=== PATIENT | female | born 1975 | race Caucasian/White ===

== ENCOUNTER 2022-06-08 08:43 | Day surgery (SDC) | payer BC ==
[2022-06-07 09:12] LABS: BASOPHILS # (AUTO) 0.1 K/uL (0.00-0.22); BASOPHILS % (AUTO) 0.7 % (0.0-2.0); EOSINOPHILS # (AUTO) 0.1 K/uL (0-0.4); EOSINOPHILS % (AUTO) 1.3 % (0.0-4.0); HEMATOCRIT 36.3 % (36-48); HEMOGLOBIN 11.3 g/dL (12.0-16.0); LYMPHOCYTES # (AUTO) 0.9 K/uL (2.5-16.5); LYMPHOCYTES % (AUTO) 10.1 % (20.5-51.1); MEAN CORPUSCULAR HEMOGLOBIN 22 pg (27-31); MEAN CORPUSCULAR HGB CONC 31 g/dL (33-37); MEAN CORPUSCULAR VOLUME 71.3 fL (80-94); MONOCYTES # (AUTO) 0.4 K/uL (0.8-1.0); MONOCYTES % (AUTO) 5.1 % (1.7-9.3); NEUTROPHILS # (AUTO) 7.3 K/uL (1.8-7.7); NEUTROPHILS % (AUTO) 82.8 % (42.2-75.2); PLATELET COUNT (AUTO) 473 K/uL (140-450); RED BLOOD CELL COUNT(AUTO) 5.08 MIL/uL (4.20-5.40); RED CELL DISTRIBUTION WIDTH 16.4 % (11.6-13.7); WHITE BLOOD COUNT (AUTO) 8.8 K/uL (4.8-10.8)
[2022-06-07 09:27] LABS: ALBUMIN 3.6 g/dL (3.4-5.0); ANION GAP 12.7 (8-16); CARBON DIOXIDE 29.1 mmol/L (21-32); CREATININE 0.8 mg/dL (0.6-1.3); POTASSIUM 3.8 mmol/L (3.5-5.1); TOTAL BILIRUBIN 0.4 mg/dL (0.0-1.0)
[~2022-06-08] VITALS: Ht 165.1 cm; Wt 63.5 kg
[2022-06-08] MEDS ORDERED: BUPIVACAINE-MPF/EPI 0.5% 30 ML VIAL INJ ONE (10:10)
[2022-06-08] MEDS ORDERED: LIDOCAINE 1% 500 MG/50 ML VIAL ONE (10:11)
[2022-06-08] MEDS ORDERED: fentaNYL citrate 0.05 MG/ML VIAL ONE (11:10)
[2022-06-08] MEDS ORDERED: MIDAZOLAM 2 MG/2 ML VIAL ONE (11:10)
[2022-06-08] MEDS ORDERED: HYDROcodone/APAP 5/325 MG 1 TAB TAB PO PRN (12:55)
[2022-06-08] MEDS ORDERED: ONDANSETRON 4 MG/2 ML VIAL IV PRN (12:55)
[2022-06-08] MEDS ORDERED: HYDROmorphone 1 MG/ML AMP IVP PRN ×2 (12:55→13:35)
[2022-06-08] MEDS ORDERED: MORPHINE SULFATE 2 MG/ML SYR IVP PRN (12:55)
[2022-06-08] MEDS ORDERED: MORPHINE SULFATE 4 MG/ML SYR IV PRN (12:55)
[2022-06-08] MEDS ORDERED: ONDANSETRON 4 MG/2 ML VIAL ONE (13:27)
[2022-06-08] MEDS ORDERED: KETOROLAC 30 MG/ML VIAL ONE (13:27)
[2022-06-08] MEDS ORDERED: LIDOCAINE MPF 2% 100 MG/5 ML VIAL INJ ONE (13:27)
[2022-06-08] MEDS ORDERED: PROPOFOL 200 MG/20 ML VIAL IV ONE (13:27)
[2022-06-08] MEDS ORDERED: LACTATED RINGERS 1,000 ML IV SCH (13:35)
[2022-06-08] MEDS ORDERED: ONDANSETRON 4 MG/2 ML VIAL IVP PRN (13:35)
[2022-06-08] MEDS ORDERED: diphenhydrAMINE 50 MG/ML VIAL IVP PRN (13:35)
== END 2022-06-08 15:15 | disposition home or self-care (01) ==
LOC: MMU 08:43 → MDS 08:43
PROVIDERS: ATTEND Surgery
DX: N63.21 Unspecified lump in the left breast, upper outer quadrant (principal); C50.912 Malignant neoplasm of unspecified site of left female breast; Z79.01 Long term (current) use of anticoagulants
CPT/HCPCS: 19120; 36415; 71045; 80053; 81025; 85025; 87070; 87075; 87205; 87426; J0690; J1885; J2001; J2250; J2405; J2704; J3010; J3490; J7060; 88307

== ENCOUNTER 2022-07-18 07:59 | Day surgery (SDC) | payer MEDICAID ==
[2022-07-17 10:20] LABS: ALBUMIN 4.2 g/dL (3.4-5.0); ANION GAP 10.4 (8-16); CARBON DIOXIDE 27.5 mmol/L (21-32); CREATININE 0.9 mg/dL (0.6-1.3); POTASSIUM 3.9 mmol/L (3.5-5.1); TOTAL BILIRUBIN 0.6 mg/dL (0.0-1.0)
[2022-07-17 14:13] LABS: BASOPHILS % (AUTO) 0.8 % (0.0-2.0); EOSINOPHILS # (AUTO) 0.1 K/uL (0-0.4); EOSINOPHILS % (AUTO) 1.9 % (0.0-4.0); HEMATOCRIT 39.2 % (36-48); HEMOGLOBIN 12.6 g/dL (12.0-16.0); LYMPHOCYTES % (AUTO) 42.2 % (20.5-51.1); MEAN CORPUSCULAR HEMOGLOBIN 24 pg (27-31); MEAN CORPUSCULAR HGB CONC 32 g/dL (33-37); MEAN CORPUSCULAR VOLUME 73.9 fL (80-94); MONOCYTES # (AUTO) 0.2 K/uL (0.8-1.0); MONOCYTES % (AUTO) 5.2 % (1.7-9.3); NEUTROPHILS # (AUTO) 2.4 K/uL (1.8-7.7); NEUTROPHILS % (AUTO) 49.9 % (42.2-75.2); PLATELET COUNT (AUTO) 233 K/uL (140-450); RED BLOOD CELL COUNT(AUTO) 5.31 MIL/uL (4.20-5.40); RED CELL DISTRIBUTION WIDTH 19.3 % (11.6-13.7); WHITE BLOOD COUNT (AUTO) 4.7 K/uL (4.8-10.8)
[~2022-07-18] VITALS: Ht 165.1 cm; Wt 63.5 kg
[2022-07-18] MEDS ORDERED: BUPIVACAINE-MPF 0.25% 30 ML VIAL INJ ONE (09:44)
[2022-07-18] MEDS ORDERED: MEPERIDINE 25 MG/ML SYR ONE (10:00)
[2022-07-18] MEDS ORDERED: SEVOFLURANE 250 ML BTL INH ONE (10:00)
[2022-07-18] MEDS ORDERED: ceFAZolin 1,000 MG VIAL ONE (10:00)
[2022-07-18] MEDS ORDERED: fentaNYL citrate 0.05 MG/ML - 50mL vial IV ONE (10:00)
[2022-07-18] MEDS ORDERED: PROPOFOL 200 MG/20 ML VIAL IV ONE ×2 (10:00→10:09)
[2022-07-18] MEDS ORDERED: fentaNYL citrate 0.05 MG/ML VIAL ONE (10:08)
[2022-07-18] MEDS ORDERED: SUCCINYLCHOLINE CHLORIDE 200 MG/10 ML VIAL IVP ONE (10:09)
[2022-07-18] MEDS ORDERED: ONDANSETRON 4 MG/2 ML VIAL ONE (10:31)
[2022-07-18] MEDS ORDERED: MEPERIDINE 50 MG/ML SYR ONE ×2 (10:40→11:11)
[2022-07-18] MEDS ORDERED: MORPHINE SULFATE 2 MG/ML SYR IVP PRN (11:45)
[2022-07-18] MEDS ORDERED: MORPHINE SULFATE 4 MG/ML SYR IV PRN (11:45)
[2022-07-18] MEDS ORDERED: HYDROmorphone 1 MG/ML AMP IVP PRN (11:45)
[2022-07-18] MEDS: HYDROmorphone 1 MG/ML AMP IVP PRN ×4 (11:45→12:15)
[2022-07-18] MEDS ORDERED: ONDANSETRON 4 MG/2 ML VIAL IV PRN (11:45)
[2022-07-18] MEDS ORDERED: ONDANSETRON 4 MG/2 ML VIAL IVP PRN (11:50)
[2022-07-18] MEDS ORDERED: diphenhydrAMINE 50 MG/ML VIAL IVP PRN (11:50)
[2022-07-18] MEDS ORDERED: MEPERIDINE 25 MG/ML SYR IVP PRN (11:50)
[2022-07-18] MEDS ORDERED: LACTATED RINGERS 1,000 ML IV SCH (11:50)
[2022-07-18] MEDS ORDERED: HYDROmorphone PFS 2 MG/ML SYR ONE (11:51)
[2022-07-18] MEDS ORDERED: ONDANSETRON 4 MG/2 ML VIAL IVP ONE (14:00)
== END 2022-07-18 15:10 | disposition home or self-care (01) ==
LOC: MOR 07:59 → MMU 08:00 → MOR 15:10
PROVIDERS: ATTEND Surgery
DX: C50.412 Malignant neoplasm of upper-outer quadrant of left female breast (principal); Z20.822 Contact with and (suspected) exposure to COVID-19; Z79.899 Other long term (current) drug therapy
CPT/HCPCS: 19301; 36415; 80053; 81025; 85025; 87426; 88307; J0330; J0690; J1170; J2175; J2405; J2704; J3010; J3490; J7060; J7120

== ENCOUNTER 2022-08-16 07:56 | Inpatient (IN) | payer MEDICAID ==
[2022-08-15 09:49] LABS: BASOPHILS % (AUTO) 0.8 % (0.0-2.0); EOSINOPHILS # (AUTO) 0.1 K/uL (0-0.4); HEMATOCRIT 36.4 % (36-48); LYMPHOCYTES # (AUTO) 1.8 K/uL (2.5-16.5); LYMPHOCYTES % (AUTO) 39.4 % (20.5-51.1); MEAN CORPUSCULAR HEMOGLOBIN 25 pg (27-31); MEAN CORPUSCULAR HGB CONC 33 g/dL (33-37); MEAN CORPUSCULAR VOLUME 74.7 fL (80-94); MONOCYTES # (AUTO) 0.2 K/uL (0.8-1.0); MONOCYTES % (AUTO) 5.3 % (1.7-9.3); NEUTROPHILS # (AUTO) 2.4 K/uL (1.8-7.7); NEUTROPHILS % (AUTO) 52.5 % (42.2-75.2); PLATELET COUNT (AUTO) 212 K/uL (140-450); RED BLOOD CELL COUNT(AUTO) 4.87 MIL/uL (4.20-5.40); RED CELL DISTRIBUTION WIDTH 17.7 % (11.6-13.7); WHITE BLOOD COUNT (AUTO) 4.6 K/uL (4.8-10.8)
[2022-08-15 10:05] LABS: ALBUMIN 3.9 g/dL (3.4-5.0); ANION GAP 11.3 (8-16); CARBON DIOXIDE 27.6 mmol/L (21-32); CREATININE 0.8 mg/dL (0.6-1.3); POTASSIUM 3.9 mmol/L (3.5-5.1); TOTAL BILIRUBIN 0.3 mg/dL (0.0-1.0)
[~2022-08-16] VITALS: Ht 165.1 cm; Wt 61.2 kg
[2022-08-16] MEDS ORDERED: BUPIVACAINE-MPF/EPI 0.25% 30 ML VIAL INJ ONE (11:53)
[2022-08-16] MEDS ORDERED: METHYLENE BLUE 1% 10 MG/ML AMP ONE (11:58)
[2022-08-16] MEDS ORDERED: ONDANSETRON 4 MG/2 ML VIAL ONE ×2 (12:00→12:42)
[2022-08-16] MEDS ORDERED: SUGAMMADEX SODIUM 200 MG/2 ML VIAL IV ONE ×2 (12:00→12:47)
[2022-08-16] MEDS ORDERED: KETOROLAC 30 MG/ML VIAL ONE ×2 (12:00→12:43)
[2022-08-16] MEDS ORDERED: PROPOFOL 200 MG/20 ML VIAL IV ONE ×2 (12:00→12:42)
[2022-08-16] MEDS ORDERED: ceFAZolin 1,000 MG VIAL ONE ×2 (12:00→12:42)
[2022-08-16] MEDS ORDERED: ROCURONIUM 50 MG/5 ML VIAL IV ONE ×3 (12:00→13:11)
[2022-08-16] MEDS ORDERED: SEVOFLURANE 250 ML BTL INH ONE (12:00)
[2022-08-16] MEDS ORDERED: fentaNYL citrate 0.05 MG/ML - 50mL vial IV ONE (12:00)
[2022-08-16] MEDS ORDERED: fentaNYL citrate 0.05 MG/ML VIAL ONE (12:14)
[2022-08-16] MEDS ORDERED: DEXT 5% /NACL 0.9% 1,000 ML IV SCH (13:30)
[2022-08-16] MEDS ORDERED: MORPHINE SULFATE 4 MG/ML SYR IV PRN (13:30)
[2022-08-16] MEDS ORDERED: ONDANSETRON 4 MG/2 ML VIAL IV PRN (13:30)
[2022-08-16] MEDS ORDERED: ACETAMINOPHEN 325 MG TAB PO PRN (13:30)
[2022-08-16] MEDS ORDERED: MORPHINE SULFATE 2 MG/ML SYR IVP PRN (13:30)
[2022-08-16] MEDS ORDERED: HYDROmorphone 1 MG/ML AMP IVP PRN ×2 (13:30→14:05)
[2022-08-16] MEDS ORDERED: LABETALOL 20 MG/4 ML VIAL IVP PRN (14:05)
[2022-08-16] MEDS ORDERED: hydrALAZINE 20 MG/ML VIAL IVP PRN (14:05)
[2022-08-16] MEDS ORDERED: METOCLOPRAMIDE 10 MG/2 ML INJ VIAL IVP PRN (14:05)
[2022-08-16 15:30] VITALS: BP 114/63
[2022-08-16] MEDS: LACTATED RINGERS 1,000 ML IV SCH (16:06)
--- NOTE | 2022-08-16 17:50 | NUR ---
RECEIVED PT FROM PACU S/P SIMPLE LEFT MASTECTOMY. VSS, AFEBRILE. DENIES PAIN OR DISCOMFORT. RA. TOLERATING CLD. LEFT CHEST DRESSING C/D/I. EMMANUELLE DRAIN X2 WITH SEROSANGUINEOUS OUTPUT. ALL NEEDS MET, SAFETY AND COMFORT MEASURES MAINTAINED, CALL LIGHT WITHIN REACH.
--- NOTE | 2022-08-16 19:14 | NUR ---
RECEIVED ENDORSEMENT FROM HERNANDEZ JORDAN (REGISTRY) FOR CONTINUITY OF CARE, PATIENT WAS STABLE DURING THE SHIFT CHANGE. IT WAS ENDORSED PATIENT CAN FROM PACU AND HAS DRESSING ACROSS HER CHEST FROM MASTECTOMY AND TWO EMMANUELLE DRAIN NOTED ON THE LEFT SIDE. DRESSING NOTED CLEAN AND DRY. PATIENT HAS NO S/S OF PAIN/DISCOMFORT. PATIENT IS AMBULATORY TO BATHROOM. CALL LIGHT WITHIN REACH. SIDE RAILS UP X 2 FOR SAFETY AND COMFORT. [email or web address]
--- NOTE | 2022-08-16 20:55 | NUR ---
PATIENT IN BED ALERT AND ORIENTED WATCHING TV. PATIENT WAS ABLE TO EAT 25% OF HER MEAL. NURSING DRAINED OUT THE EMMANUELLE DRAINS EQUALLING 50ML OF SANGUINOUS DRAINAGE. DENIES ANY PAIN DISCOMFORT AT THIS TIME. [email or web address]
--- NOTE | 2022-08-16 21:30 | NUR ---
Patient's Plan of Care was discussed and reviewed with PHYSICIAN PEDIATRICIAN: LUCIUS PECK
[2022-08-16 23:56] VITALS: BP 90/51
[2022-08-17] MEDS: LACTATED RINGERS 1,000 ML IV SCH ×2 (00:05→10:27)
--- NOTE | 2022-08-17 00:23 | NUR ---
PATIENT NOTED IN BED ASLEEP WITHOUT INCIDENT. CHEST RISING AND FALLING EVENLY. NO NOTED S/S OF PAIN/DISCOMFORT. SIDE RAILS UP CALL LIGHT WITHIN REACH. [email or web address]
--- NOTE | 2022-08-17 03:34 | NUR ---
PATIENT NOTED IN BED ASLEEP WITHOUT INCIDENT. CHEST RISING AND FALLING EVENLY. NO NOTED S/S OF PAIN/DISCOMFORT. SIDE RAILS UP CALL LIGHT WITHIN REACH. [email or web address]
--- NOTE | 2022-08-17 07:03 | NUR ---
ENDORSED PATIENT TO HELEN FOR CONTINUITY OF CARE, PATIENT WAS STABLE DURING SHIFT CHANGE. [email or web address]
--- NOTE | 2022-08-17 07:05 | NUR ---
RECEIVED REPORT FROM NIGHTSHIFT NURSE. PT IS ASLEEP IN BED, WOKE TO NAME AND TOUCH, NO SIGNS OF DISTRESS, PT REPORTS HAVING SMALL HEADACHE, PAIN ASSESSMENT DONE, PROVIDED NONPHARM INTERVENTIONS, WILL REASSESS PAIN. REORIENTED PT TO CALL LIGHT, BED IN LOWEST POSITION, 2 SIDE RAILS UP, CALL LIGHT PLACED WITHIN REACH. WILL CONTINUE WITH CARE.
[2022-08-17 08:00] VITALS: BP 92/52
[2022-08-17] MEDS ORDERED: ENOXAPARIN 30 MG/0.3 ML SYR SUBQ SCH (09:00)
--- NOTE | 2022-08-17 09:08 | NUR ---
PATIENT HAS BEEN SCREENED AND CATEGORIZED LOW NUTRITION RISK. PATIENT WILL BE SEEN WITHIN 7 DAYS OF ADMISSION. 08/24/22 REVIEWED BY ZOYA REA RD
--- NOTE | 2022-08-17 10:46 | NUR ---
NONPHARM INTERVENTIONS FOR PAIN WERE INEFFECTIVE, PRN MED FOR GOINS PROVIDED @0800. PAIN REASSESSMENT DONE, PT REPORTS NO PAIN. ASSESSED PT EMMANUELLE DRAIN. 10ML OUT OF 1ST EMMANUELLE DRAIN, 30ML OUT OF 2ND EMMANUELLE DRAIN. 40ML TOTAL. NO FURTHER NEEDS ARE TO BE MET AT THIS TIME, WILL CONTINUE WITH PT CARE.
--- NOTE | 2022-08-17 13:53 | NUR ---
DC PLANNING A 46 YEAR OLD FEMALE PATIENT ADMITTED 08/16/22 FOR MALIGNANT TUMOR LEFT BREAST.LEFT SIMPLE MASTECTOMY DONE WITH 2 EMMANUELLE DRAINS.TALKED TO [facility], [facility]. REFERRAL FOR A PCP TO BE GIVEN BY [facility] . NO COMPLAINTS OF PAIN.CM TO FOLLOW. Addendum: 08/17/22 at 1511 by GEETHA GUZMAN CM DC PLANNING PATIENT TO BE DISCHARGED TODAY.SON TO NURSE AIDE EVALUATOR PATIENT.
--- NOTE | 2022-08-17 14:03 | NUR ---
DC PLANNING ASSESSMENT COMPLETE PLEASE REFER TO ASSESSMENT FOR ADDITIONAL DETAILS PT REPORTS TENTATIVE DC PLAN IS TO RETURN HOME W/ SON PROVIDING TRANSPORTATION, WHEN MEDICALLY STABLE. Addendum: 08/17/22 at 1403 by Lamonte MIMS Amended: Links added.
[2022-08-17 14:31] VITALS: BP 102/60
--- NOTE | 2022-08-17 17:22 | NUR ---
PT INFORMED OF DISCHARGE. DISCHARGE INSTRUCTIONS PROVIDED. PT VERBALIZE UNDERSTANDING. DISCHARGE PAPERWORK SIGNED. IV REMOVED. PT WILL BE PICKED UP BY SON. PT LEFT [facility] [address]. PT VITALS STABLE, NO SIGNS OF DISTRESS/PAIN/DISCOMFORT UPON LEAVING. PT EXPRESSES EXCITEMENT TO BE HOME. NO FURTHER NEEDS ARE TO BE MET AT THIS TIME.
== END 2022-08-17 17:20 | disposition home or self-care (01) | DRG 363 ==
LOC: MDS 07:56 → MMU 07:56 → MDS 12:35 → MMU 14:35
PROVIDERS: ADMIT Surgery; ATTEND Surgery
PROC: 0HBU0ZZ Excision of Left Breast, Open Approach (ICD-10-PCS; principal; 2022-08-16 10:50)
DX: C50.812 Malignant neoplasm of overlapping sites of left female breast (principal); C50.912 Malignant neoplasm of unspecified site of left female breast; Z20.822 Contact with and (suspected) exposure to COVID-19
CPT/HCPCS: 36415; 80053; 81025; 85025; J0690; J1650; J1885; J2405; J2704; J3010; J3490; J7060; J7120; Q9968